=== PATIENT | male | born 1945 | race Caucasian/White ===

== ENCOUNTER 2017-12-01 12:35 | Emergency (ER) | payer MEDICARE, OTHER ==
[~2017-12-01] VITALS: Ht 190.5 cm; Wt 149.6 kg
[~2017-12-01 12:35] MED LIST: ASPI-611 PO; CHOL100046 PO; CLOP75TA15 PO; HCTZ25T PO; LOSA100T28 PO; PANT-47 PO
[2017-12-01] MEDS ORDERED: LIDOcaine 1.5% w/epinephrine 1:200,000 5ml ampul IJ ONE (14:35)
[2017-12-01] MEDS ORDERED: TETanus/Pertussis (Acell)/Diphther VAC/PF (Tdap-Adult) 0.5ml syringe IM ONE (14:35)
[2017-12-01] MEDS ORDERED: mupirocin 2% ointment 22GM TP ONE (14:35)
[2017-12-01] MEDS ORDERED: cephalexin 250mg capsule PO ONE (15:30)
[2017-12-01] MEDS ORDERED: doxycycline hyclate 100mg tablet.DR PO ONE (15:30)
[2017-12-01] MEDS ORDERED: CEPH500C2 PO (15:32)
[2017-12-01] MEDS ORDERED: DOXY100C2 PO (15:32)
[2017-12-01 15:54] VITALS: BP 125/68
== END 2017-12-01 15:55 | disposition home or self-care (01) ==
LOC: ER 12:37
DX: L02.212 Cutaneous abscess of back [any part, except buttock and flank] (principal); L03.312 Cellulitis of back [any part except buttock and flank]; E78.00 Pure hypercholesterolemia, unspecified; I10 Essential (primary) hypertension; Z87.891 Personal history of nicotine dependence; Z90.49 Acquired absence of other specified parts of digestive tract; Z98.890 Other specified postprocedural states; Z79.82 Long term (current) use of aspirin; Z79.899 Other long term (current) drug therapy; Z79.01 Long term (current) use of anticoagulants
CPT/HCPCS: 10060; 90471; 90715; 99284; A6266; A6449; 99283

== ENCOUNTER 2018-07-11 08:21 | Day surgery (SDC) | payer MEDICARE, OTHER ==
[2018-07-10 13:30] LABS: BASOPHILS % (AUTO) 0.3 % (0-1); EOSINOPHILS # (AUTO) 0.5 X10'3 (0-0.9); EOSINOPHILS % (AUTO) 4.6 % (0-6); HEMATOCRIT 41.3 % (42.0-52.0); HEMOGLOBIN 14.5 g/dl (14.0-17.9); LYMPHOCYTES # (AUTO) 1.7 X10'3 (1.1-4.8); LYMPHOCYTES % (AUTO) 17.2 % (21-51); MEAN CORPUSCULAR HEMOGLOBIN 32.4 PG (27.0-31.0); MEAN CORPUSCULAR HGB CONC 35.1 % (33.0-36.5); MEAN CORPUSCULAR VOLUME 92.3 FL (78-98); MEAN PLATELET VOLUME 8.6 FL (7.4-10.4); MONOCYTES # (AUTO) 0.9 X10'3 (0-0.9); MONOCYTES % (AUTO) 8.5 % (2-12); NEUTROPHILS % (AUTO) 69.4 % (42-75); PLATELET COUNT 174 X10'3 (140-440); RED BLOOD COUNT 4.48 X10'6 (4.70-6.10); RED CELL DISTRIBUTION WIDTH 13.4 % (11.5-14.5); WHITE BLOOD COUNT 10.1 X10'3 (4.5-11.0)
[2018-07-10 13:33] LABS: PARTIAL THROMBOPLASTIN TIME 26 SECONDS (22-32); PROTHROMBIN TIME 10.6 SECONDS (9.0-12.0)
[2018-07-10 13:36] LABS: ALANINE AMINOTRANSFERASE 59 U/L (12-78); ALBUMIN 3.7 G/DL (3.4-5.0); ALBUMIN/GLOBULIN RATIO 1.1 (1.1-1.5); ALKALINE PHOSPHATASE 88 IU/L (46-116); ANION GAP 12 (8-16); ASPARTATE AMINO TRANSFERASE 40 U/L (10-37); BILIRUBIN,TOTAL 1.1 MG/DL (0.1-1.0); BLOOD UREA NITROGEN 16 MG/DL (7-18); BUN/CREATININE RATIO 15.1 (5.4-32.0); CALCIUM 9.6 MG/DL (8.5-10.1); CHLORIDE 104 MMOL/L (99-107); CREATININE 1.06 MG/DL (0.60-1.10); GLUCOSE 86 MG/DL (70-104); POTASSIUM 3.5 MMOL/L (3.5-5.1); SODIUM 141 MMOL/L (135-145); TOTAL CARBON DIOXIDE 24.6 MMOL/L (24-32); TOTAL PROTEIN 7.2 G/DL (6.4-8.2); eGFR 68 ML/MIN
[2018-07-11] VITALS (11 sets, daily range): BP systolic 99–171; BP diastolic 54–85
[~2018-07-11] VITALS: Ht 190.5 cm; Wt 152.5 kg
[2018-07-11] MEDS ORDERED: diphenhydrAMINE 25mg capsule PO PRN (08:40)
[2018-07-11] MEDS ORDERED: nitroGLYCERIN 0.4mg SUBLingual tab SL PRN (08:40)
[2018-07-11] MEDS ORDERED: LORazepam 0.5 MG tablet PO PRN (08:40)
[2018-07-11] MEDS ORDERED: normal saline 1000ml 1,000 ML IV SCH (08:40)
[2018-07-11] MEDS ORDERED: ATRNS (08:48)
[2018-07-11] MEDS ORDERED: NAS0.025NS BOTHNARES (08:48)
[2018-07-11] MEDS ORDERED: IBUP-1985 PO (08:48)
[2018-07-11] MEDS ORDERED: DOCU-261 (08:48)
[2018-07-11] MEDS ORDERED: ESOM20CA PO (08:48)
[2018-07-11] MEDS ORDERED: MULT1TAB74 PO (08:48)
[2018-07-11] MEDS ORDERED: FLUT100D2 INH (08:48)
[2018-07-11] MEDS ORDERED: iohexol 350MG/ML 100ml bottle IV ONE (10:09)
[2018-07-11] MEDS ORDERED: fentaNYL/PF 50MCG/1 ML 2ML syringe ONE (10:09)
[2018-07-11] MEDS ORDERED: LIDOcaine 1% 30ml preserv. free vial ONE (10:09)
[2018-07-11] MEDS ORDERED: iohexol 350 MG/ML 50ML vial IV ONE (10:09)
[2018-07-11] MEDS ORDERED: midazolam 2 mg/2 ml injection ONE ×2 (10:09→10:54)
[2018-07-11] MEDS ORDERED: HYDROcodone/acetaminophen 10/325mg tab PO PRN (11:55)
[2018-07-11] MEDS ORDERED: OXAZEpam 15mg capsule PO PRN (11:55)
[2018-07-11] MEDS ORDERED: proCHLORperazine 10 MG/2 ml inj IV PRN (11:55)
[2018-07-11] MEDS ORDERED: ondansetron/PF 4mg/2ml inj IV PRN (11:55)
[2018-07-11] MEDS ORDERED: HYDROcodone/acetaminophen 5mg/325mg tablet PO PRN (11:55)
== END 2018-07-11 18:00 | disposition home or self-care (01) ==
LOC: SSTAY O 08:21
PROVIDERS: ATTEND Internal Medicine Cardiovascular Disease
DX: I25.10 Atherosclerotic heart disease of native coronary artery without angina pectoris (principal); I45.19 Other right bundle-branch block; F41.1 Generalized anxiety disorder; I10 Essential (primary) hypertension; E78.5 Hyperlipidemia, unspecified; K21.9 Gastro-esophageal reflux disease without esophagitis; E66.01 Morbid (severe) obesity due to excess calories; K22.70 Barrett's esophagus without dysplasia; Z68.41 Body mass index [BMI] 40.0-44.9, adult; Z95.5 Presence of coronary angioplasty implant and graft; Z79.82 Long term (current) use of aspirin; Z79.01 Long term (current) use of anticoagulants; Z79.1 Long term (current) use of non-steroidal anti-inflammatories (NSAID); Z90.49 Acquired absence of other specified parts of digestive tract; Z72.89 Other problems related to lifestyle; Z85.118 Personal history of other malignant neoplasm of bronchus and lung; Z87.891 Personal history of nicotine dependence; Z98.890 Other specified postprocedural states; Z79.899 Other long term (current) drug therapy
CPT/HCPCS: 36415; 71046; 80053; 85025; 85610; 85730; 93005; 93458; 99152; 99153; A6257; C1760; C1769; J1644; J2250; J3010; J3490; J7030; Q0163; Q9967; A4620

== ENCOUNTER 2023-02-21 08:23 | Day surgery (SDC) | payer OTHER ==
[~2023-02-21] VITALS: Ht 190.5 cm; Wt 137.1 kg
[~2023-02-21 08:23] MED LIST changes: +ATRNS; +DOCU-337; +ESOM20CA PO; +FLUT100D2 INH; -HCTZ25T PO; +HYDR25TA5 PO; +IBUP-1985 PO; -LOSA100T28 PO; +LOSA100T57 PO; +MULT-620 PO; +NAS0.025NS BOTHNARES; -PANT-47 PO
[2023-02-21] MEDS ORDERED: normal saline 1000ml 1,000 ML IV PRN (08:55)
[2023-02-21] MEDS ORDERED: ALBU8HFA PO (08:56)
[2023-02-21] MEDS ORDERED: XAL0.005OS OP (08:57)
[2023-02-21] MEDS ORDERED: GUAI200T5 (08:57)
[2023-02-21] MEDS ORDERED: SIMV-42 PO (08:58)
[2023-02-21] MEDS ORDERED: MELA1TAB28 PO (08:58)
[2023-02-21 09:00] VITALS: BP 157/76
[2023-02-21] MEDS ORDERED: TIOTROPIUM (09:00)
[2023-02-21] MEDS ORDERED: OLODATEROL (09:00)
[2023-02-21 09:37] LABS: BASOPHILS % (AUTO) 0.5 % (0-1); EOSINOPHILS # (AUTO) 0.3 X10'3 (0-0.9); EOSINOPHILS % (AUTO) 4.1 % (0-6); LYMPHOCYTES # (AUTO) 1.3 X10'3 (1.1-4.8); MEAN CORPUSCULAR HEMOGLOBIN 32.4 PG (27.0-31.0); MEAN CORPUSCULAR HGB CONC 34.8 g/dL (33.0-36.5); MEAN CORPUSCULAR VOLUME 93.1 FL (78-98); MEAN PLATELET VOLUME 8.9 FL (7.4-10.4); MONOCYTES # (AUTO) 0.8 X10'3 (0-0.9); MONOCYTES % (AUTO) 9.7 % (2-12); NEUTROPHILS # (AUTO) 5.6 X10'3 (1.8-7.7); NEUTROPHILS % (AUTO) 69.7 % (42-75); PLATELET COUNT 180 X10'3 (140-440); RED BLOOD COUNT 4.62 X10'6 (4.70-6.10); RED CELL DISTRIBUTION WIDTH 13.4 % (11.5-14.5)
[2023-02-21] MEDS ORDERED: midazolam 1 mg/ML 2ml injection ONE (09:52)
[2023-02-21] MEDS ORDERED: fentaNYL/PF 50MCG/1 ML 2ML syringe ONE (09:53)
[2023-02-21 10:10] VITALS: BP 129/74
[2023-02-21 10:15] VITALS: BP 139/57
[2023-02-21 10:20] VITALS: BP 134/62
--- NOTE | 2023-02-21 10:40 | NUR ---
Procedure cancelled. PIV DC cath intact, VSS, denies pain. DC instructions given to pt and , verbalize understanding. Pt able to dress self, DC to home with , amb to private car, gait steady.
== END 2023-02-21 10:45 | disposition home or self-care (01) ==
LOC: SSTAY O 08:23
PROVIDERS: ATTEND Radiology Diagnostic Radiology
DX: R91.8 Other nonspecific abnormal finding of lung field (principal); Z53.8 Procedure and treatment not carried out for other reasons; D02.21 Carcinoma in situ of right bronchus and lung; F41.9 Anxiety disorder, unspecified; I25.10 Atherosclerotic heart disease of native coronary artery without angina pectoris; K21.9 Gastro-esophageal reflux disease without esophagitis; E78.5 Hyperlipidemia, unspecified; H40.9 Unspecified glaucoma; E04.9 Nontoxic goiter, unspecified; F32.9 Major depressive disorder, single episode, unspecified; I11.9 Hypertensive heart disease without heart failure; Z87.891 Personal history of nicotine dependence; Z79.899 Other long term (current) drug therapy; Z79.01 Long term (current) use of anticoagulants; Z79.82 Long term (current) use of aspirin
CPT/HCPCS: 36415; 71250; 85025; 85610; J2250; J3010; J7030; A4615